=== PATIENT | male | born 1965 | race Caucasian/White ===

== ENCOUNTER → 2017-05-12 | Outpatient (REF) ==
[2016-05-09 09:33] VITALS: BP 128/69
[~2017-05-12] MED LIST: BACTRIM DS TAB1 EACH PO; DULERA1 AR1 IH; MOTRIN100 M1 PO; NORCO 325 MG-51 TA1 PO; SINGULAIR PO; VENTOLIN0.09 MG IH
== END ==
LOC: LAB 10:33
DX: B18.2 Chronic viral hepatitis C (principal); E08.00 Diabetes mellitus due to underlying condition with hyperosmolarity without nonketotic hyperglycemic-hyperosmolar coma (NKHHC)

== ENCOUNTER 2020-10-01 01:11 | Emergency (ER) | payer SELFPAY ==
[2020-10-01 02:12] LABS: HEMATOCRIT 46.3 % (42.0-52.0); MEAN CELL VOLUME 87 fl (78-100); MEAN CORPUSCULAR HEMOGLOBIN 30 pg (27-31); MEAN CORPUSCULAR HGB CONC 35 g/dL (33-37); PLATELET COUNT 240 K/mm3 (130-400); RED CELL DISTRIBUTION WIDTH 13.1 % (11.5-14.5); WHITE BLOOD COUNT 10.6 K/mm3 (4.8-10.8)
[2020-10-01 02:22] LABS: POTASSIUM 3.8 mmol/L (3.5-5.1)
[2020-10-01 02:23] LABS: CALCIUM 8.6 mg/dL (8.3-10.5)
[2020-10-01 02:39] LABS: LYMPHOCYTE 24 % (20-51); MONOCYTE 5 % (3-10); NEUTROPHILS 65 % (42-75)
[2020-10-01 02:40] LABS: TOXIC GRANULATION PRESENT
[2020-10-01] MEDS ORDERED: PREDNISONE20 M1 PO (03:19)
[2020-10-01] MEDS ORDERED: ZITHROMAX Z PA250 MG PO (03:19)
[2020-10-01 06:48] VITALS: BP 141/93
== END 2020-10-01 06:48 | disposition home or self-care (01) ==
LOC: ED 01:11
PROVIDERS: Family Medicine
DX: J45.909 Unspecified asthma, uncomplicated (principal); I10 Essential (primary) hypertension; Z20.828 Contact with and (suspected) exposure to other viral communicable diseases; Z87.891 Personal history of nicotine dependence
CPT/HCPCS: J0360